=== PATIENT | male | born 1950 | race Caucasian/White ===

== ENCOUNTER → 2016-12-23 | Outpatient (CLI) | payer BC ==
[~2016-12-23] MED LIST: CYSTEX PLUS TA1 EACH PO; LEVOTHROID (S137 MCG PO; PROSCAR5 MG PO; TYLENOL/COD#31 TAB PO; ULTRAM50 MG PO; VESICARE10 MG PO
== END | disposition disaster alternative care site (69) ==
LOC: GRAD 14:25
DX: Z09 Encounter for follow-up examination after completed treatment for conditions other than malignant neoplasm (principal); N20.0 Calculus of kidney